=== PATIENT | male | born 1995 | race Caucasian/White ===

== ENCOUNTER 2016-04-25 02:02 | Emergency (ER) | payer OTHER ==
[2016-04-25 02:03] VITALS: TEMP 36.4; O2SAT 93; Ht 172.7 cm
[2016-04-25 03:04] LABS: BLOOD UREA NITROGEN 11 mg/dl (7-18); BUN/CREATININE RATIO 14.7 (10-20); CARBON DIOXIDE 26 mmol/L (21-32); CHLORIDE 110 mmol/L (98-107); CREATININE 0.77 mg/dl (0.60-1.40); GLUCOSE 97 mg/dl (70-99); POTASSIUM 3.8 mmol/L (3.5-5.1); SODIUM 147 mmol/L (136-145)
--- NOTE | 2016-04-25 06:16 | DIAGNOSTIC IMAGING REPORT ---
HEAD CT NONCONTRAST CT DOSE: HISTORY: Head injury/etoh TECHNIQUE: Multiaxial CT images of the head were performed without the use of intravenous contrast. Automated exposure control was utilized for this study. Comparison: None. Findings: The paranasal sinuses and mastoid air cells are clear. The calvarium and skull base are intact. The ventricles and sulci are within normal limits. There is no mass, hematoma, midline shift, or acute infarct. Mild posterior scalp swelling. Impression: No acute intracranial abnormality. Electronically signed by: Bruce Lincoln M.D. 04/25/2016 6:15 AM Dictated Date/Time: 04/25/2016 6:13 AM
--- NOTE | 2016-04-25 06:19 | DIAGNOSTIC IMAGING REPORT ---
CERVICAL SPINE CT CT DOSE: 1141.62 mGy.cm HISTORY: Neck injury/etoh TECHNIQUE: Multiaxial CT images of the cervical spine were performed and reformatted in the sagittal and coronal plane without the use of contrast. COMPARISON: None. FINDINGS: No fractures. No subluxation. Prevertebral soft tissues and the C1-C2 interval are intact. No pneumothorax. IMPRESSION: No fractures within the cervical spine. Electronically signed by: Bruce Lincoln M.D. 04/25/2016 6:18 AM Dictated Date/Time: 04/25/2016 6:15 AM
[2016-04-25] MEDS ORDERED: XYLOCAINE 1%/SOD BICARB 20 ML VIAL INFIL ONE (07:00)
--- NOTE | 2016-04-25 07:37 | EMERGENCY ROOM VISIT NOTE ---
History First contact with patient: 02:13 Chief Complaint: ALCOHOL OVERDOSE Stated Complaint: ALCOHOL OVERDOSE Nursing Triage Summary: Pt arrived via [facility] from home. Per EMS, pt was drinking all day and began vomiting [employer]. Pt fell in bathroom hitting head. 0.5in lac to back of head. EMS started IV. Pt given 4mg zofran and 500ml NSS [employer]. History of Present Illness The patient is a 20 year old male who presents to the Emergency Department via EMS for evaluation after an alcohol overdose and head injury. The patient had been drinking all day. The patient began vomiting. He was sitting on the edge of the tub getting ready to take a shower when he fell posteriorly striking the back of his head. He did not lose consciousness. The patient was vomiting in route. He was given 4 mg Zofran and a 500 mL normal saline bolus. He denies any other drug use. He reports a mild headache. He reports no history of head injuries. The patient takes no daily medications. He rates his current discomfort as a 2/10. Review of Systems Review of systems Limited secondary to the patient's current state of intoxication. Social History Smoking Status: Unknown if Ever Smoked Smokeless Tobacco Use: No Alcohol Use: occasionally Drug Use: none Marital Status: single Housing Status: lives with roommate Occupation Status: [employer] student Current/Historical Medications No Active Prescriptions or Reported Meds Allergies Coded Allergies: No Known Allergies (Unverified , 04/25/16) Physical Exam Vital Signs Date Time Temp Pulse Resp B/P Pulse Ox O2 Delivery O2 Flow Rate FiO2 04/25/16 07:52 76 21 113/67 96 04/25/16 07:44 76 21 96 04/25/16 06:59 102 16 113/67 97 04/25/16 06:44 96 14 04/25/16 06:35 82 04/25/16 06:29 105/46 04/25/16 06:22 80 16 92 04/25/16 06:17 80 16 92 04/25/16 05:59 101/52 04/25/16 05:47 83 17 94 04/25/16 05:40 118/49 04/25/16 05:17 86 17 95 04/25/16 05:12 78 16 93 04/25/16 04:59 126/63 04/25/16 04:42 82 17 93 04/25/16 04:29 116/60 04/25/16 04:12 78 16 93 04/25/16 04:07 79 16 93 04/25/16 03:59 115/61 04/25/16 03:37 74 14 93 04/25/16 03:29 114/60 04/25/16 03:07 70 16 93 04/25/16 02:59 117/54 04/25/16 02:37 72 16 94 04/25/16 02:32 75 17 94 04/25/16 02:29 119/53 04/25/16 02:21 69 04/25/16 02:09 123/75 04/25/16 02:03 36.4 69 18 123/75 93 Room Air 04/25/16 02:03 93 Room Air Pain Rating (0-10): 2 Physical Exam VITALS - Vitals are noted on the nurse's note and reviewed by myself. Vital signs stable. GENERAL -20-year-old male, in no acute distress, nondiaphoretic, well-developed well-nourished. The patient is visibly intoxicated. SKIN - The skin was with small 2.5 cm laceration to the posterior aspect of the scalp. There is no tenting of the skin. Capillary reflex less than 2 seconds. HEENT - Normocephalic, atraumatic. PERRLA. EOMI. Conjunctiva with mild injection without icterus. Tympanic membranes without erythema or effusion bilaterally no hemotympanum. External auditory canals are clear. Nares patent bilaterally. No epistaxis. Oropharynx without erythema or exudate. Uvula midline. Oral mucosal moist. No lymphadenopathy. Neck is supple without cervical spine tenderness. HEART - Regular rate and rhythm without murmurs gallops or rubs. Peripheral pulses 2+. LUNGS - Clear to auscultation bilaterally without wheezes, rales or rhonchi. ABDOMEN - Positive bowel sounds x 4. Normal tympanic percussion. Soft, nontender, without masses or organomegaly. MUSCULOSKELETAL - Gross motor function of the upper and lower extremities intact. NEUROLOGIC - The patient is visibly intoxicated. Medical Decision & Procedures Laboratory Results 04/25/16 02:36 Test 04/25/16 02:36 Anion Gap 11.0 mmol/L (3-11) Estimated GFR () > 150.0 Estimated GFR (Non- 129.7 BUN/Creatinine Ratio 14.7 (10-20) Calcium Level 8.0 mg/dl (8.5-10.1) Ethyl Alcohol mg/dL 276.0 mg/dl (0-3) Procedure Patient was placed on the recenterer and monitored throughout the entire extent of their stay. In addition, the patient's pulse oximetry was monitored throughout the entire stay. Any abnormalities or aberrancies were addressed appropriately. SCALP LACERATION: Costs and benefits of performing primary wound closure versus no repair were discussed with the patient who verbalizes understanding. Verbal consent was obtained prior to performing the procedure. 2.0 cc of 1% buffered lidocaine was used to anesthetize the scalp laceration. The wound was cleansed and prepped in the typical sterile fashion utilizing normal saline and Betadine. The wound was sterilely draped. Once proper anesthetization was established, the wound was further examined and demonstrated a partial thickness laceration. The wound was copiously irrigated with normal saline and Betadine. The wound was closed using 5 zay with the wound edges being well approximated. Patient tolerated the procedure well. No complications were met. The wound was cleansed and dressed with a Bacitracin dressing. ED Course Patient was seen and evaluated by myself. Aspiration precautions were instituted and the patient was placed in the prone position. The patient was placed on the recenterer and pulse oximetry was monitored throughout the entire stay in the emergency department. Labs were collected. Patient's medical alcohol was found to be elevated at 276.0 mg/dL. Patient was monitored in the emergency department for greater than 6 hours. The patient eventually was awoken and educated on today's visit. Scalp laceration was repaired as described above. They were encouraged to refrain from heavy drinking. All labs and diagnostics were reviewed. Patient was discharged home in good condition. Medical Decision Given the patient's presentation and exam findings, I did elect to perform the above-mentioned workup. The patient presents today visibly intoxicated. The patient was monitored constantly throughout entire stay in the emergency setting. Medical alcohol level was elevated significantly at 276.0 mg/dL. laceration was repaired without issue. After a lengthy stay in the Emergency Department the patient was deemed appropriate for discharge. Patient was discharged home in good condition. In the evaluation and treatment of this patient, the following differential diagnoses were considered: Hypoglycemia, Barbiturate Toxicity, Benzodiazepine Toxicity, Depression and Suicidality, Diabetic Ketoacidosis, Encephalitis, Ethylene Glycol Toxicity, Meningitis, Metabolic Acidosis, Opioid Toxicity, CVA, TIA, Intracranial Abnormality, Acute Psychosis, Amongst Others. Impression Primary Impression: Alcohol overdose Additional Impressions: Head injury Scalp laceration Departure Information Dispostion Home / Self-Care Condition GOOD Prescriptions No Active Prescriptions or Reported Meds Referrals No Doctor, Assigned (PCP) Patient Instructions ED Laceration Scalp Stitch Or Stap, My [facility] Additional Instructions You have been seen in the emergency department today for an alcohol overdose, scalp laceration and head injury. You have received 5 zay on your scalp. These zay are NOT dissolvable and WILL need to be removed by a health care provider in 10 days. You can return to the Emergency Department or contact your Primary Care Provider to have these zay removed. Proper wound care is essential for adequate wound healing and infection prevention. You can shower and clean the wound with soap and water. Do scour over the wound, pat dry with a towel. Do not submerse the wound until the zay have been removed. You can use an antibiotic ointment with a dressing over the wound for the next 3-4 days. After this time you may leave the wound dry and open to the air. If crust develops over the wound you can use a Q-tip to apply a 1:1 peroxide:water solution to clean the wound. Look for signs of infection of the wound including: increased pain, swelling, foul discharge, streaking, or increased temperature. If any of these are noticed you should return to the Emergency Department for further assessment and treatment. As with any laceration you may have received nerve damage to the surrounding tissues. This damage may or may not be permanent. For pain control, you can use the following [id number] medicines (if >12 yo): - Regular strength (325mg/tab) Tylenol (acetaminophen) 2 tabs every 4-6 hours as needed. Do not exceed 12 tablets in a 24 hour period. Avoid taking more than 4 grams (4000 mg) of Tylenol per day. This includes any other sources of acetaminophen you may take on a regular basis. - Regular strength (200 mg/tab) Advil (ibuprofen) 1-2 tabs every 4-6 hours as needed. Do not exceed a dose of 3200 mg per day. Return to the emergency department if your symptoms worsen despite treatment course outlined above. Problem Qualifiers Primary Impression: Alcohol overdose Encounter type: initial encounter Injury intent: accidental or unintentional Qualified Codes: T51.91XA - Toxic effect of unspecified alcohol , accidental (unintentional), initial encounter Additional Impressions: Head injury Encounter type: initial encounter Qualified Codes: S09.90XA - Unspecified injury of head, initial encounter Scalp laceration Encounter type: initial encounter Qualified Codes: S01.01XA - Laceration without foreign body of scalp, initial encounter
[2016-04-25 07:52] VITALS: BP 113/67; PULSE 76; O2SAT 96
== END 2016-04-25 07:52 | disposition home or self-care (01) ==
LOC: C.EDB 02:04
DX: T51.91XA Toxic effect of unspecified alcohol, accidental (unintentional), initial encounter (principal); S01.01XA Laceration without foreign body of scalp, initial encounter; W18.2XXA Fall in (into) shower or empty bathtub, initial encounter; Y92.031 Bathroom in apartment as the place of occurrence of the external cause